=== PATIENT | female | born 1960 | race Caucasian/White ===

== ENCOUNTER → 2020-11-03 | Outpatient (CLI) | payer BC | END | disposition home or self-care (01) | LOC: SHCH 08:13 | PROVIDERS: ATTEND Internal Medicine Cardiovascular Disease | DX: I10 Essential (primary) hypertension (principal) | CPT/HCPCS: 93306 ==

== ENCOUNTER → 2023-12-30 | Outpatient (CLI) | payer BC | END | disposition home or self-care (01) | LOC: SHCH 07:31 | PROVIDERS: ATTEND Internal Medicine Cardiovascular Disease | DX: I35.0 Nonrheumatic aortic (valve) stenosis (principal) | CPT/HCPCS: 93306 ==

== ENCOUNTER 2025-04-07 12:51 | Emergency (ER) | payer BC ==
[~2025-04-07] VITALS: Ht 175.3 cm; Wt 86.2 kg
--- NOTE | 2025-04-07 13:09 | ERN ---
General Chief Complaint: Mechanical Fall Stated Complaint: FALL Time Seen by MD: 12:52 History of Present Illness Initial Comments 64-year-old female who presents for a mechanical fall. She slipped on ice chest. Landed on her left side in her right knee. She is complaining of left hip pain which radiates down the back of the left leg. Neurovascularly intact. Ambulatory with an antalgic gait. Allergies: Coded Allergies: No Known Drug Allergies (Unverified Allergy, Unknown, 04/07/25) Home Meds Active Scripts Acetaminophen with Codeine (Acetaminophen-Cod #3 Tablet) 300 Mg-30 Mg Tablet, 1 TAB PO Q6HPRN PRN for pain for 7 Days, #28 TAB 0 Refills Prov:PAOLA PARDO DO 04/07/25 Meloxicam (Meloxicam) 15 Mg Tablet, 15 MG PO DAILY PRN for PAIN for 10 Days, #10 TAB Prov:PAOLA PARDO DO 04/07/25 Past Medical History Past Medical History: Diabetes-Type II, High Cholesterol, Hypertension Past Surgical History: Hysterectomy, ROS Dictation CONSTITUTIONAL: No chills, no fever, no weakness, no diaphoresis, no malaise. HEAD/FACE: No signs of trauma. EENT: No eye pain, no blurred vision, no tearing, no double vision, no ear p ain, no ear discharge, no nose pain, no nasal congestion, no throat pain, no throat swelling, no mouth pain. RESPIRATORY: No cough, no orthopnea, no SOB, no stridor, no wheezing. CARDIOVASCULAR: No chest pain, no edema, no palpitations, no syncope. GASTROINTESTINAL/ABDOMINAL: No abdominal pain, no constipation, no diarrhea, no nausea, no vomiting. GENITOURINARY: No abnormal discharge, no dysuria, no frequent urination, no hematuria. No complaints of pain in the genitals. MUSCULOSKELETAL: Left leg pain INTEGUMENTARY: No change in color, no change in hair/nails, no dryness, no lesion, no lumps, no rash. NEUROLOGICAL/PSYCH: No anxiety, not depressed, no emotional problem, no headache, no numbness, no pre-existing deficit, no history of seizures, no tremors, no weakness. HEMATOLOGIC/LYMPHATIC: Not anemic, no history of blood clots, no apparent bleeding, no bruising, glands not swollen. All Systems Negative, Except as Noted. Physical Exam Physical Exam Dictation VITAL SIGNS: Reviewed. GENERAL APPEARANCE: Alert, oriented x3, no acute distress, obese. HEAD AND FACE: Non-traumatic. EYES: PERRL, pink conjunctivas, eyelid no trauma, anterior chamber clear. EARS: Pinnas intact and no signs of trauma or erythema. Ear canals clear and no discharge. TMs no erythema. NOSE: No discharge, no bleeding. OROPHARYNX: Mouth normal, teeth no caries, tongue pink. Pharynx clear, no erythema. Tonsils no exudates, no abscesses noted. Mucous membrane moist. NECK: Supple, non-tender, no thyromegaly, no masses, no JVD, no bruits. BREAST: Deferred. CHEST: No tenderness, no crepitus, no paradoxical movement, no retractions. LUNGS: Clear, well-ventilated, symmetric, no rales, no wheezing, no rhonchi, no stridor, good breath sounds bilaterally. HEART: Regular rate, regular rhythm, no murmur, no gallops. VASCULAR: No peripheral edema. ABDOMEN: Soft, positive bowel sounds, nondistended, no guarding, nontender, no rebound, no masses no hepatomegaly, no splenomegaly, no Domínguez's sign, no hernias. RECTAL: Deferred. GENITAL: Deferred. NEUROLOGICAL: Normal speech, gross motor function intact, gross sensory function intact. MUSCULOSKELETAL: Neck nontender, full range of motion, back nontender, full range of motion. EXTREMITIES: Nontender, full range of motion. SKIN: Color pink, dry, no turgor, no rash, no lacerations, no abrasions, no contusions. LYMPHATICS: Deferred. MDM CC: Left hip pain Historian: Patient Comorbidities: Hypertension Limitations by social determinants of health: None Differential diagnosis: Soft tissue injury, fracture, other Neurovascularly intact. She has a has a bruising to the left hip area. She is ambulatory with an antalgic gait. X-ray is unremarkable Ultrasound shows 90 DVT there is a hematoma consistent with the patient's presentation I suspect soft tissue injury. No signs of life threats neurovascular compromise or fracture. We will DC. ED Course Orders Procedure Category Date Status Time Us Venous Doppler US 04/07/25 Resulted Unilateral 12:59 Hip Unilat 2-3vw Left RAD 04/07/25 Resulted 12:59 Ketorolac PHA 12/26/25 Complete Tromethamine 15mg/Ml 13:00 Hydrocodone/Apap PHA 04/07/25 Complete 5/325 ([place] 5/325mg) 13:00 Current Medications Medications (Trade) Dose Ordered Sig/Ema Route PRN Reason Start Time Stop Time Status Last Admin Dose Admin Acetaminophen/ Hydrocodone Bitart (NORco 5/325MG) 1 tab ONCE ONCE PO 04/07/25 13:00 04/07/25 13:06 DC 04/07/25 14:49 Ketorolac Tromethamine (toRADol) 15 mg ONCE ONCE IM 04/07/25 13:00 04/07/25 13:06 DC 04/07/25 14:49 Vital Signs Date Time Temp Pulse Resp B/P (MAP) Pulse Ox O2 Delivery O2 Flow Rate FiO2 04/07/25 14:45 97.9 88 16 166/84 98 Room Air* 0 21 04/07/25 12:52 98.2 98 20 189/90 98 Room Air DX & DISP Disposition: Discharge Departure Impression: Primary Impression: Hip hematoma, left Additional Impressions: Fall, Hip injury Condition: Stable Scripts Acetaminophen with Codeine (Acetaminophen-Cod #3 Tablet) 300 Mg-30 Mg Tablet 1 TAB PO Q6HPRN PRN for pain for 7 Days, #28 TAB 0 Refills Prov: PAOLA PARDO DO 04/07/25 Meloxicam (Meloxicam) 15 Mg Tablet 15 MG PO DAILY PRN for PAIN for 10 Days, #10 TAB Prov: PAOLA PARDO DO 04/07/25 Additional Instructions: The x-rays do not show any bony abnormalities or fractures. The ultrasound does show a large 5 x 6 cm hematoma. As we discussed, these often absorb on their own. I have prescribed meloxicam take once daily for pain. For severe pain, I have prescribed Tylenol with codeine. Use as needed. I recommend applying ice 20 minutes daily for the next 48 hours. After that use a heating pad. Try to stretch her leg and ambulate as much as possible. Monitor for any signs of infection. Return to the emergency department if they develop. I recommend that you follow up with the primary doctor in 3-5 days for re- evaluation. Return to the emergency department as needed. Referrals: ALEAH LÓPEZ MD (PCP) PAOLA PARDO DO Apr 07, 2025 13:08
--- NOTE | 2025-04-07 14:44 | HMCIMG ---
EXAM: US for Deep Venous Thrombosis, left Lower Extremity. CLINICAL HISTORY: Leg Pain and Swelling TECHNIQUE: Real-time ultrasound scan of the veins of the left lower extremity with color Doppler flow, spectral waveform analysis and compression. COMPARISON: None provided. FINDINGS: DEEP VEINS: The common femoral, superficial femoral, and popliteal veins are echolucent and compressible. There is normal color Doppler flow throughout. The visualized calf veins appear patent. SOFT TISSUES: A complex fluid collection is visualized along the left gluteal region/upper thigh, showing no vascularity on Doppler examination. It measures 6.3 x 2 x 5.7 cm. The findings are suggestive of a hematoma, most likely. IMPRESSION: 1. No evidence of deep venous thrombosis in the left lower extremity. 2. Complex fluid collection in the left gluteal region/upper thigh, likely representing a hematoma. /[place]
[2025-04-07 14:45] VITALS: BP 166/84; PULSE 88; RESP 16; TEMP 97.9; O2SAT 98
[2025-04-07] MEDS ORDERED: MELO-108 PO (14:47)
[2025-04-07] MEDS ORDERED: ACET-2079 PO (14:47)
[2025-04-07] MEDS: HYDROcodone/APAP 5/325 1 TAB TABLET PO ONE (14:49)
--- NOTE | 2025-04-07 15:25 | HMCIMG ---
EXAM CR Left Hip, 3 View CLINICAL HISTORY Fall COMPARISON None provided FINDINGS BONES No acute fracture or aggressive appearing osseous lesion of the left hip or pelvis is identified. JOINTS There is mild bilateral hip osteoarthritis with slight joint space narrowing and small marginal osteophytes. No hip dislocation is present. Sacroiliac joints and symphysis pubis appear preserved. SOFT TISSUES No focal soft tissue abnormality is identified. IMPRESSION * Mild bilateral hip osteoarthritis. * No acute fracture or dislocation. /[place]
== END 2025-04-07 15:00 | disposition home or self-care (01) ==
LOC: EDH 12:51
DX: S70.02XA Contusion of left hip, initial encounter (principal); M79.605 Pain in left leg; E11.9 Type 2 diabetes mellitus without complications; E78.00 Pure hypercholesterolemia, unspecified; I10 Essential (primary) hypertension; Z90.710 Acquired absence of both cervix and uterus; Z98.890 Other specified postprocedural states; W00.0XXA Fall on same level due to ice and snow, initial encounter; Y93.89 Activity, other specified; Y92.89 Other specified places as the place of occurrence of the external cause; Y99.8 Other external cause status
CPT/HCPCS: 99284; 93971; 73502; 96372; J1885